=== PATIENT | male | born 1980 | race Two or more races ===

== ENCOUNTER 2022-10-16 09:08 | Emergency (ER) | payer MEDICAID, OTHER ==
[~2022-10-16] VITALS: Ht 185.4 cm; Wt 95.0 kg
[2022-10-16 09:29] VITALS: BP 144/101
[2022-10-16] MEDS ORDERED: CLINDAMYCIN 600 MG/4 ML VL IM ONE (12:00)
[2022-10-16] MEDS ORDERED: DexAMETHasone SOD PHOS 10MG/1ML VIAL INJ IM ONE (12:00)
[2022-10-16] MEDS ORDERED: IBUP800T27 PO ×2 (12:03→12:09)
[2022-10-16] MEDS ORDERED: ACET-1304 PO ×2 (12:03→12:09)
[2022-10-16] MEDS ORDERED: CLIN-203 PO ×2 (12:03→12:09)
[2022-10-16] MEDS ORDERED: cefTRIAXone W LIDOCAINE 1 GM IM IM ONE (12:45)
[2022-10-16] MEDS ORDERED: cefTRIAXone SOD 1,000 MG VL IM ONE (13:15)
== END 2022-10-16 13:27 | disposition home or self-care (01) ==
LOC: ER 09:08
DX: J36 Peritonsillar abscess (principal); Z79.1 Long term (current) use of non-steroidal anti-inflammatories (NSAID); Z79.2 Long term (current) use of antibiotics; Z79.899 Other long term (current) drug therapy
CPT/HCPCS: 71046; 96372; 99284; J0696; J1100